=== PATIENT | female | born 1980 | race Caucasian/White ===

== ENCOUNTER 2021-04-10 13:53 | Observation (INO) ==
[2021-04-10] MEDS ORDERED: SODIUM CHLORIDE 0.9% 1,000 ML IV STA (15:57)
[2021-04-10] MEDS ORDERED: ONDANSETRON 4 MG/2 ML VIAL IV STA (15:57)
[2021-04-10 17:20] LABS: Basophils # 0.1 10*3/uL (0.0-0.2); Basophils % 0.6 % (0.0-0.8); Eosinophils # 0.6 10*3/uL (0.0-0.87); Eosinophils % 4.8 % (0.00-10.9); Hematocrit 36.5 VOL% (35.7-47.0); Hemoglobin 12.6 GM/DL (12.0-16.0); Immature Granulocytes % 0.6 %; Immature Granulocytes Absolute 0.07 #; Lymphocytes # 1.5 10*3/uL (1.4-4.0); Lymphocytes % 13.3 % (21.3-54.2); Mean Corpuscular HGB Conc 34.5 GM/DL (32-36); Mean Corpuscular Volume 88.4 FL (87-102); Mean Platelet Volume 10.6 FL (9.6-12.0); Monocytes % 5.8 % (1.7-12.7); Neutrophils % 74.9 % (38.7-73.9); Platelet Count 274 T/CUMM (130-400); Red Blood Count 4.13 MC/CUMM (3.8-5.5); Red Cell Distribution Width 13.6 % (9.3-17.3); White Blood Count 11.5 T/CUMM (4-12)
[2021-04-10 17:28] LABS: Bacteria,Urine Occasional /HPF (Few); Bilirubin,Urine Negative (Negative); Blood, Urine Small mg/dL (Negative); Glucose,Urine (UA) Negative (Negative); Ketones,Urine 5 mg/dL (Negative); Mucus,Urine Occasional /LPF (Occasional); Nitrite,Urine Negative (Negative); Protein,Urine 30 MG/DL; RBC,Urine 3 /HPF (0-4); Squamous Epithelial Cell,Urine Few /HPF (0-10); Urine Appearance Slightly Hazy (Clear); Urine Color Amber (Yellow); Urine Specific Gravity 1.044 (1.001-1.035); Urine Urobilinogen < 2.0 EU/DL (0.2-1.0)
[2021-04-10 17:49] LABS: Albumin 2.9 G/DL (3.4-5.0); Bilirubin,Total 0.7 MG/DL (0.20-1.00); Calcium 9.1 MG/DL (8.5-10.1); Osmolality,Calculated 259.7 MOS/KG (273-304); Potassium 2.6 MMOL/L (3.5-5.1); Total Protein 7.8 G/DL (6.4-8.2)
[2021-04-10] MEDS ORDERED: ONDANSETRON 4 MG/2 ML VIAL IV PRN (18:55)
[2021-04-10] MEDS ORDERED: ACETAMINOPHEN 325 MG TABLET PO PRN (18:55)
[2021-04-10] MEDS ORDERED: DEXTROSE 50% 25 GM/50 ML VIAL IV PRN (18:55)
[2021-04-10] MEDS ORDERED: GLUCAGON 1 MG VIAL IM PRN (18:55)
[2021-04-10] MEDS ORDERED: cefTRIAXone 1,000 MG in SODIUM CHLORIDE 0.9% 100 ML IV SCH (19:30)
[2021-04-10] MEDS ORDERED: cefTRIAXone 1,000 MG VIAL ONE (20:09)
[2021-04-10] MEDS: POTASSIUM CHLORIDE INJ 10 MEQ in DEXTROSE 5% 1,000 ML IV SCH (22:31)
[2021-04-10] MEDS: SODIUM CHLORIDE 0.9% 1,000 ML IV SCH (22:48)
[2021-04-11] MEDS: SODIUM CHLORIDE 0.9% 1,000 ML IV SCH (03:07)
[2021-04-11 05:34] LABS: Basophils % 0.4 % (0.0-0.8); Eosinophils # 0.7 10*3/uL (0.0-0.87); Eosinophils % 8.1 % (0.00-10.9); Hematocrit 32.8 VOL% (35.7-47.0); Hemoglobin 10.9 GM/DL (12.0-16.0); Immature Granulocytes % 0.7 %; Immature Granulocytes Absolute 0.06 #; Lymphocytes # 1.5 10*3/uL (1.4-4.0); Mean Corpuscular HGB Conc 33.2 GM/DL (32-36); Mean Corpuscular Volume 89.1 FL (87-102); Mean Platelet Volume 10.8 FL (9.6-12.0); Monocytes % 7.4 % (1.7-12.7); Neutrophils % 67.4 % (38.7-73.9); Platelet Count 248 T/CUMM (130-400); Red Blood Count 3.68 MC/CUMM (3.8-5.5); Red Cell Distribution Width 13.6 % (9.3-17.3); White Blood Count 9.2 T/CUMM (4-12)
[2021-04-11 06:04] LABS: Calcium 8.7 MG/DL (8.5-10.1); Osmolality,Calculated 272.7 MOS/KG (273-304); Potassium 2.6 MMOL/L (3.5-5.1)
[2021-04-11] MEDS: POTASSIUM CHLORIDE INJ 10 MEQ in DEXTROSE 5% 1,000 ML IV SCH (08:12)
[2021-04-11] MEDS: PANTOPRAZOLE 40 MG TABLET PO SCH (08:12)
[2021-04-11] MEDS: SODIUM CHLOR 0.9% KCL 40 MEQ 40 MEQ/1,000 ML BAG IV SCH ×2 (08:21→16:24)
[2021-04-11] MEDS: POTASSIUM CHLORIDE 20 MEQ TABLET PO PRN ×4 (08:21→14:00)
[2021-04-11] MEDS ORDERED: PROMETHAZINE INJ 12.5 MG in SODIUM CHLORIDE 0.9% 50 ML IV PRN (09:43)
[2021-04-11 09:57] LABS: Hepatitis B Core IgM Quant 0.06 Index; Hepatitis B Surface Ag Quant < 0.10 Index; Hepatitis B Surface Ag Result Non-Reactive (NonReactive); Hepatitis C Virus Ab Quant 0.18 Index; Hepatitis C Virus Ab Result Non-Reactive (NonReactive)
[2021-04-11] MEDS: VANCOMYCIN 50 MG/ML 60 ML/BOTTLE PO SCH ×2 (18:09→23:33)
[2021-04-12] MEDS: SODIUM CHLOR 0.9% KCL 40 MEQ 40 MEQ/1,000 ML BAG IV SCH ×2 (00:39→08:57)
[2021-04-12] MEDS: POTASSIUM CHLORIDE 20 MEQ TABLET PO PRN ×2 (03:59→06:12)
[2021-04-12 05:42] LABS: Basophils % 0.4 % (0.0-0.8); Eosinophils % 13.6 % (0.00-10.9); Hematocrit 33.4 VOL% (35.7-47.0); Hemoglobin 10.9 GM/DL (12.0-16.0); Immature Granulocytes Absolute 0.07 #; Lymphocytes # 1.8 10*3/uL (1.4-4.0); Mean Corpuscular HGB Conc 32.6 GM/DL (32-36); Mean Corpuscular Volume 91.3 FL (87-102); Mean Platelet Volume 10.7 FL (9.6-12.0); Monocytes % 6.3 % (1.7-12.7); Neutrophils % 54.7 % (38.7-73.9); Platelet Count 257 T/CUMM (130-400); Red Blood Count 3.66 MC/CUMM (3.8-5.5); Red Cell Distribution Width 14.3 % (9.3-17.3); White Blood Count 7.3 T/CUMM (4-12)
[2021-04-12] MEDS: VANCOMYCIN 50 MG/ML 60 ML/BOTTLE PO SCH ×2 (06:06→11:46)
[2021-04-12 06:25] LABS: Calcium 8.5 MG/DL (8.5-10.1); Osmolality,Calculated 275.4 MOS/KG (273-304)
[2021-04-12 07:08] LABS: Eosinophils 16 % (0-10); Lymphocytes 11 % (20-55); Microcytosis Slight; Segmented Neutrophils 67 % (50-85); Total Cells Counted 100
[2021-04-12 07:09] LABS: Platelet Estimate Normal; Polychromasia Slight; Target Cells Slight
[2021-04-12] MEDS ORDERED: SODIUM BICARB INJ 50 MEQ in SODIUM CHLORIDE 0.45% 1,000 ML IV SCH (09:00)
[2021-04-12] MEDS: PANTOPRAZOLE 40 MG TABLET PO SCH (10:24)
[2021-04-12 11:54] VITALS: BP 132/78
[2021-04-12 14:27] LABS: Calcium 8.7 MG/DL (8.5-10.1); Osmolality,Calculated 280.1 MOS/KG (273-304); Potassium 3.7 MMOL/L (3.5-5.1)
[2021-04-12] MEDS ORDERED: GABAPENTIN 300 MG CAPSULE PO SCH (21:00)
[2021-04-13] MEDS ORDERED: GABAPENTIN 300 MG CAPSULE PO SCH (21:00)
== END 2021-04-12 15:34 | disposition home or self-care (01) ==
LOC: N.ED 13:53 → N.EDINP 13:53 → N.3E 20:28
PROVIDERS: ADMIT Internal Medicine; ATTEND Internal Medicine